=== PATIENT | female | born 1955 | race Two or more races ===

== ENCOUNTER → 2017-03-12 | Outpatient (CLI) | payer BC ==
[2016-01-06 08:22] VITALS: BP 143/78
[~2017-03-12] MED LIST: ALPR0.5T PO; ATEN25TA PO; GABA800T2 PO; GLIM4TAB2 PO; HYDR25TA9 PO; INSU100I7 SQ; METF-620 PO; MONT10TA9 PO; POTASSIUM CHLO10 MEQ PO; TOLT2CAP PO
--- NOTE | 2017-03-12 11:41 | KCIC ---
EXAM: Thoracic spine, 3 views. HISTORY: Pain. COMPARISON: None. FINDINGS: Frontal, lateral and swimmer's views of the thoracic spine are obtained. There is minimal S-shaped thoracic curvature. There is no thoracic listhesis. The vertebral bodies are normal in height. There is degenerative endplate remodeling with sclerotic multiple levels. There is slight cervical retrolisthesis at C4-C5. There is disc space narrowing, endplate remodeling and facet arthropathy at the mid and lower cervical levels. IMPRESSION: 1. No acute osseous finding. 2. Multilevel degenerative change within the cervical and thoracic spine. Electronically signed by: Adore Flynn MD (03/12/2017 11:38 AM)
== END | disposition home or self-care (01) ==
LOC: KCIC 10:45
PROVIDERS: ATTEND Family Medicine
DX: M47.894 Other spondylosis, thoracic region (principal); M47.892 Other spondylosis, cervical region
CPT/HCPCS: 72072

== ENCOUNTER → 2017-03-19 | Outpatient (CLI) | payer BC ==
[2016-01-06 08:22] VITALS: BP 143/78
--- NOTE | 2017-03-19 09:03 | KCIC ---
Right upper quadrant abdominal ultrasound History: Elevated liver enzymes. Comparison: None. Technique: Transabdominal ultrasound images are obtained. Findings: Visualized pancreas is unremarkable. Liver is normal in echogenicity. No focal hepatic masses are identified although ultrasound is not sensitive for their detection. The right hepatic lobe measures 13.4 cm, normal. Gallbladder has an unremarkable appearance. Common bile duct caliber is normal measuring 5 mm in diameter. The right kidney measures 11.1 cm in length and is without evidence of obstruction or stone. IVC is unremarkable. IMPRESSION: Unremarkable right upper quadrant ultrasound. Electronically signed by: Shay Armijo MD (03/19/2017 8:59 AM)
== END | disposition home or self-care (01) ==
LOC: KCIC US 08:03
PROVIDERS: ATTEND Family Medicine
DX: R74.8 Abnormal levels of other serum enzymes (principal)
CPT/HCPCS: 76705

== ENCOUNTER → 2021-11-20 | Outpatient (CLI) | payer MEDICARE ==
[2016-01-06 08:22] VITALS: BP 143/78
[~2021-11-20] MED LIST changes: -GABA800T2 PO; +GABA800T5 PO; -GLIM4TAB2 PO; +GLIM4TAB8 PO; +HYDR-2145 PO; -HYDR25TA9 PO; -METF-620 PO; +METF10007 PO; +MONT10TA49 PO; -MONT10TA9 PO; +POTA10TA12 PO; -POTASSIUM CHLO10 MEQ PO
--- NOTE | 2021-11-20 12:29 | KCIC ---
Bilateral digital screening mammograms with 3-D tomosynthesis: Reason for examination: Routine screening. Comparison is made to previous studies dated between 11/10/2015 and 12/21/2009. Bilateral mammograms in CC and oblique projections were obtained with 2-D imaging and 3-D tomosynthes is imaging on a Siemens Inspiration unit and reviewed on the workstation. Interpretation was made wit h the benefit of CAD. The skin and nipples show no abnormalities. No abnormal axillary lymph nodes are seen. The breast par enchyma is extremely dense. (Breast density: Category D.) There are no dominant masses, suspicious ca lcifications or architectural distortion. Benign calcifications are present. Impression: No evidence of malignancy. Recommend routine screening. Your patient's mammogram demonstrates that she has dense breast tissue (breast density category C or D), which could hide abnormalities, and if she has other risk factors for breast cancer that have bee n identified, she might benefit from supplemental screening tests that may be suggested by you as her ordering physician. Dense breast tissue, in and of itself, is a relatively common condition. Therefo re, this information is not provided to cause undue concern, but rather to raise your awareness and t o promote discussion with your patient regarding the presence of other risk factors, in addition to d ense breast tissue. Your patient's mammography results will be sent to her. BI-RAD Category 2: Benign. "Our facility is accredited by the [employer] Mammography Program." This patient's information has been entered into a reminder system for the patient to be notified wit h the results of her examination and a target date for the next mammogram. Electronically signed by: Lulu Lester MD (11/20/2021 12:26 PM) [id number]
== END ==
LOC: KCIC MAMMO 10:32
PROVIDERS: ATTEND Family Medicine
DX: Z12.31 Encounter for screening mammogram for malignant neoplasm of breast (principal)
CPT/HCPCS: 77063; 77067